=== PATIENT | male | born 1990 | race Caucasian/White ===

== ENCOUNTER 2021-04-23 19:39 | Emergency (ER) | payer BC, MEDICAID ==
[~2021-04-23] VITALS: Ht 182.9 cm; Wt 93.2 kg
[~2021-04-23 19:39] MED LIST: HYDR-4383 PO; ONDA8TAB9 PO
[2021-04-23 19:48] VITALS: BP_DIAS 80
[2021-04-23 21:30] VITALS: BP_SYST 100
== END 2021-04-23 21:32 ==
LOC: ER 19:40
DX: Z13.89 Encounter for screening for other disorder (principal); R00.0 Tachycardia, unspecified; F12.90 Cannabis use, unspecified, uncomplicated; Z86.14 Personal history of Methicillin resistant Staphylococcus aureus infection; Z72.89 Other problems related to lifestyle; Z79.899 Other long term (current) drug therapy
CPT/HCPCS: 99283